=== PATIENT | female | born 1945 | race Caucasian/White ===

== ENCOUNTER 2019-02-06 12:00 | Inpatient (IN) | payer OTHER ==
[~2019-02-06] VITALS: Ht 157.5 cm; Wt 55.2 kg
[~2019-02-06 12:00] MED LIST: ACETAMINOPHEN PO; OMEP20CA16 PO
[2019-03-26] VITALS (33 sets, daily range): BP systolic 100–138; BP diastolic 46–87; PULSE 62–100; RESP 5–30; Ht 157.5 cm; Wt 55.2 kg
--- NOTE | 2019-03-26 08:08 | PREOPHP ---
DATE OF ADMISSION: 03/26/2019 HISTORY OF PRESENT ILLNESS: The patient was recently seen in the office for evaluation of severe low back pain with pain going to the lower extremities, left side greater than the right side. She senia ed any bladder or bowel dysfunction. No numbness or tingling in the lower extremities. The patient was diagnosed with L4-L5 grade I severe spondylolisthesis with severe canal stenosis. Conservative m anagement was offered to the patient with lumbar epidural injections. She also received physical the rapy as well as pain management. Her condition is getting worse. She is having more back pain and m ore leg pain. The patient wants something more definitive to be done. The patient is having difficu lty with activities of daily living. Surgical options discussed with the patient in detail for L3-L4 , L4-L5 spondylosis with severe stenosis. Surgical option was discussed with L3-L4, L4-L5 laminectom y with posterolateral fusion with pedicle screw instrumentation, possible L4-L5 interbody fusion. Th e procedure was explained to the patient in great detail. The risks, benefits, complications explain ed extensively. The patient understands and wants to proceed with surgery. PAST MEDICAL HISTORY: Per chart. SURGICAL HISTORY: Per chart. SOCIAL HISTORY: She denies use of drugs, alcohol or tobacco. ALLERGIES: Per chart. MEDICATIONS: Per chart. FAMILY HISTORY: Unremarkable. REVIEW OF SYSTEMS: Additional 10-point review of systems conducted. Pertinent positives stated in h istory, otherwise negative. PHYSICAL EXAMINATION: GENERAL: Patient is awake, alert, oriented, following commands. HEENT: Unremarkable. PULMONARY: No dyspnea noted. CARDIOVASCULAR: No JVD. No pedal edema. ABDOMEN: Soft. No guarding. NEUROLOGIC: The patient has good strength in upper extremities. Lower extremity examination is norm al. 4+/5 strength in the lower extremities. Flexion, extension, rotation lumbar spine causes severe low back discomfort. IMAGING FINDINGS: MRI of the lumbar spine shows L3-4, L4-5 spondylosis with spondylolisthesis of sev ere canal stenosis. ASSESSMENT AND PLAN: Lumbar spondylosis with severe canal stenosis with mechanical low back pain and leg pain. Recommendation is to proceed with surgical intervention with lumbar L3-L4 and L4-L5 brittany ectomy with posterolateral fusion with pedicle screw instrumentation with possible lumbar L4-L5 inter body fusion. The procedure was explained to the patient in great detail. Complications were explain ed including infection, bleeding, permanent nerve damage, stroke, heart attack, complications with an esthesia. The patient understands and wants to proceed with surgery as soon as possible. Dictated By: CATIE AVILA/SUZETTE Conf#: [id number] DID#: [id number] CC: CATIE AMADOR MD;*EndCC*
[2019-03-26] MEDS ORDERED: ATOR20TA38 PO (10:25)
[2019-03-26] MEDS ORDERED: ASCO500C7 PO (10:26)
[2019-03-26] MEDS ORDERED: PANT40TA3 PO (10:26)
[2019-03-26] MEDS ORDERED: CHOL100062 PO (10:27)
--- NOTE | 2019-03-26 11:23 | PREAC ---
Date/Time of Note Date/Time of Note DATE: 03/26/19 TIME: Anesthesia Eval and Record Evaluation Time Pre-Procedure Interview DATE: 03/26/19 TIME: Age 73 Sex female NPO: 8 hrs Preoperative diagnosis L4-L5 grade I severe spondylolisthesis with severe canal stenosis. Planned procedure L3-L4, L4-L5 laminectomy with posterolateral fusion with pedicle screw instrumentation, possible L4-L5 interbody fusion Past Medical History Past Medical History: Includes Cardio: Dyslipidemia (takes Statin) Neuro: Other (L4-L5 grade I severe spondylolisthesis with severe canal stenosis.) GI: GERD (well-controlled with med) Surgery & Anesthesia Issues No known issue Meds Anticoagulation: No Beta Nithin within 24 hr: No Reason Beta Nithin not given: Pt. not on B-Nithin Reported Medications Cholecalciferol* (Vitamin D3*) 1,000 Unit Tablet, 1000 UNIT PO DAILY, TAB 03/26/19 Ascorbic Acid* (Vitamin C*) 500 Mg Capsule.sa, 500 MG PO DAILY, CAP 03/26/19 Pantoprazole* (Protonix*) 40 Mg Tablet.dr, 40 MG PO DAILY, TAB 03/26/19 Atorvastatin Calcium* (Atorvastatin Calcium*) 20 Mg Tablet, 20 MG PO QHS, #30 TAB 03/26/19 Discontinued Reported Medications [Acetaminophen] No Conflict Check, PO 11/19/15 Omeprazole* (Omeprazole*) 20 Mg Capsule.dr, 20 MG PO DAILY, #30 CAP 11/19/15 Current Medications Lactated Ringer's 1,000 ml @ 25 mls/hr Q24H IV ; Start 03/26/19 at 11:30; Status UNV Meds reviewed: Yes Allergies Coded Allergies: No Known Allergy (Unverified , 03/26/19) Allergies Reviewed: Yes Labs/Studies Labs Reviewed: Reviewed by anesthesiologist Result Diagram: 03/26/19 1055 Laboratory Tests 03/26/19 10:55 Coagulation Test 03/26/19 10:55 Activated Partial Thromboplast Time 29.0 Sec (23.0-35.0) CBC & BMP FISHBONE 03/26/19 10:55 test: N/A Studies: ECG (NSR), CXR (NORMAL) Pre-procedure Exam Airway: Adequate mouth opening, Adequate thyromental dist Mallampati: Mallampati I Teeth: Normal (upper and lower full dentures are glued in tightly, pt refuses to remove, understands risks ) Lung: Normal Heart: Normal ASA Physical Status ASA physical status: 2 Emergency: None Planned Anesthetic General/MAC: ETT Planned Pain Management Parenteral pain med, Local by surgeon Pre-operative Attestations Prior to commencing anesthesia and surgery, the patient was re-evaluated, there was verification of: *The patient's identity *The results of appropriate recent lab work and preoperative vital signs *The above evaluation not changing prior to induction *Anesthetic plan, risk benefits, alternative and complications discussed with patient/family; questions answered; patient/family understands, accepts and wishes to proceed. COLE HARDIN March 26, 2019 11:23
[2019-03-26] MEDS ORDERED: DESFLURANE 15 MIN ONE (12:00)
[2019-03-26] MEDS ORDERED: ESMOLOL 100 MG INJ ONE (12:00)
[2019-03-26] MEDS ORDERED: ROCURONIUM 50 MG INJ ONE ×2 (12:00→12:13)
[2019-03-26] MEDS: LACTATED RINGER'S 1,000 ML IV SCH (12:02)
[2019-03-26] MEDS ORDERED: FENTAnyl 50 MCG/ML VIAL ONE ×3 (12:12→15:06)
[2019-03-26] MEDS ORDERED: CEFAZOLIN 1 GM INJ ONE (12:13)
[2019-03-26] MEDS ORDERED: LIDOCAINE 2% (SDV) 5 ML INJ ONE (12:13)
[2019-03-26] MEDS ORDERED: PROPOFOL 0 ML ONE (12:13)
[2019-03-26] MEDS ORDERED: METOCLOPRAMIDE 10 MG INJ ONE (12:15)
[2019-03-26] MEDS ORDERED: ONDANSETRON 4 MG INJ ONE (12:15)
[2019-03-26] MEDS ORDERED: DEXAMETHASONE 4 MG/ML 5 ML INJ ONE (12:15)
[2019-03-26] MEDS ORDERED: FAMOTIDINE 20 MG INJ ONE (12:16)
[2019-03-26] MEDS ORDERED: LIDOCAINE 4% (MPF) 5 ML INJ ONE (12:18)
[2019-03-26] MEDS ORDERED: LIDOCAINE 1%/EPI (1:100,000) (MDV) 20 ML ONE ×2 (12:35→12:37)
[2019-03-26] MEDS ORDERED: POLYMYXIN/BACITRACIN 1L IRRIG ONE (12:37)
[2019-03-26] MEDS ORDERED: GELATIN SIZE 100 SPONGE ONE ×2 (12:38→15:14)
[2019-03-26] MEDS ORDERED: THROMBIN 20,000 UNIT VIAL ONE (12:39)
[2019-03-26] MEDS ORDERED: hydrALAzine 20 MG INJ IV PRN (14:30)
[2019-03-26] MEDS ORDERED: MEPERIDINE 25 MG INJ IV PRN (14:30)
[2019-03-26] MEDS ORDERED: HYDROmorphONE 1 MG/5 ML IV SYRINGE IV PRN ×3 (14:30)
[2019-03-26] MEDS ORDERED: ONDANSETRON 4 MG INJ IV PRN ×2 (14:30→16:00)
[2019-03-26] MEDS ORDERED: LABETALOL HCL 20MG INJ IV PRN (14:30)
[2019-03-26] MEDS ORDERED: OXYCODONE/ACETAMINOPHEN (5/325) TAB PO PRN ×2 (14:30)
[2019-03-26] MEDS ORDERED: PROPOFOL 60 ML ONE (15:06)
[2019-03-26] MEDS ORDERED: GLYCOPYRROLATE 0.4 MG INJ ONE (15:31)
[2019-03-26] MEDS ORDERED: NEOSTIGMINE 3 MG/3 ML SYRINGE ONE (15:31)
[2019-03-26] MEDS ORDERED: niCARdipine 50 MG in SOD CHLORIDE 0.9% 480 ML IV SCH (16:00)
--- NOTE | 2019-03-26 16:21 | PAC ---
Date/Time of Note Date/Time of Note DATE: 03/26/19 TIME: 16:20 Post-Anesthesia Notes Post-Anesthesia Note Last documented vital signs post pacu bp 120/87 hr 83 temp 98.7 spo2 100% rr 16 Vital Signs Date Temp Pulse Resp B/P (MAP) Pulse Ox O2 O2 Flow FiO2 Time Delivery Rate 03/26/19 97.8 71 16 138/66 100 Room Air 11:29 (90) Activity: WNL Respiratory function: WNL Cardiovascular function: WNL Mental status: Baseline Pain reasonably controlled: Yes Hydration appropriate: Yes Nausea/Vomiting absent: Yes COLE HARDIN March 26, 2019 16:21
--- NOTE | 2019-03-26 17:54 | HP ---
Date/Time of Note Date/Time of Note DATE: 03/26/19 TIME: 17:46 Assessment/Plan VTE Prophylaxis Risk score (from Ns)>0 risk: 4 SCD applied (from Ns): Yes Pharmacological prophylaxis: NA/contraindicated Pharm contraindication: surgical contra Lines/Catheters IV Catheter Type (from Nrsg): Peripheral IV Assessment/Plan Assessment/Plan -L4-L5 grade 1 severe spondylolisthesis with severe canal stenosis status post L3-L5 laminectomy with posterolateral fusion by Dr. Mukherjee on 03/26/19. Continue IV fluids and postoperative antibiotic. Continue [place] and morphine as needed for pain and Zofran as needed for nausea. -Hyperlipidemia, continue Lipitor. -GERD, continue Protonix. Further recommendations based on clinical course. Plan of care discussed with Dr. Suarez. Result Diagram: 03/26/19 1055 03/26/19 1055 Results 24hrs Laboratory Tests Test 03/26/19 10:40 03/26/19 10:55 Urine Color STRAW Urine Clarity CLEAR Urine pH 6.0 Urine Specific [place] 1.013 Urine Ketones NEGATIVE Urine Nitrite NEGATIVE Urine Bilirubin NEGATIVE Urine Urobilinogen NEGATIVE Urine Leukocyte Esterase NEGATIVE Urine Microscopic RBC 1 Urine Microscopic WBC 0 Urine Hemoglobin 1+ H Urine Glucose NEGATIVE Urine Total Protein NEGATIVE White Blood Count 4.9 Red Blood Count 3.89 L Hemoglobin 11.8 L Hematocrit 36.3 L Mean Corpuscular Volume 93.3 Mean Corpuscular Hemoglobin 30.3 Mean Corpuscular Hemoglobin Concent 32.5 Red Cell Distribution Width 13.7 Platelet Count 184 Mean Platelet Volume 11.5 H Immature Granulocytes % 0.200 Neutrophils % 42.9 Lymphocytes % 43.5 Monocytes % 10.7 Eosinophils % 2.1 Basophils % 0.6 Nucleated Red Blood Cells % 0.0 Immature Granulocytes # 0.010 Neutrophils # 2.1 Lymphocytes # 2.1 Monocytes # 0.5 Eosinophils # 0.1 Basophils # 0.0 Nucleated Red Blood Cells # 0.0 Prothrombin Time 12.5 Prothrombin Time Ratio 1.0 INR International Normalized Ratio 0.92 Activated Partial Thromboplast Time 29.0 Sodium Level 142 Potassium Level 4.1 Chloride Level 107 Carbon Dioxide Level 28 Anion Gap 7 Blood Urea Nitrogen 12 Creatinine 0.54 Est Glomerular Filtrat Rate mL/min Glucose Level 89 Calcium Level 9.4 Total Bilirubin 0.5 Direct Bilirubin 0.00 Indirect Bilirubin 0.5 Aspartate Amino Transf (AST/SGOT) 30 Alanine Aminotransferase (ALT/SGPT) 24 Alkaline Phosphatase 83 Total Protein 7.1 Albumin 4.4 Globulin 2.70 Albumin/Globulin Ratio 1.62 HPI/ROS Admit Date/Time Admit Date/Time March 26, 2019 at 09:29 Hx of Present Illness The patient is a 3-year-old female with history of hyperlipidemia and GERD. Patient was evaluated by Dr. Marks in neurosurgery consultation for lower back pain with radiation to bilateral lower extremity was difficulty walking. Radiographic evidence with grade 1 severe spondylolisthesis with severe canal stenosis. Patient was brought to the hospital and underwent L3-L5 laminectomy was posterolateral fusion. Postoperatively patient experiencing pain and patient will be admitted for further evaluation and management. ROS 12 point review of system is negative except for what mentioned in HPI PMH/Family/Social Past Medical History Medical History: GERD, high cholesterol Medications Current Medications Lactated Ringer's 1,000 ml @ 25 mls/hr Q24H IV Last administered on 03/26/19at 12:02; Admin Dose 25 MLS/HR; Start 03/26/19 at 11:30 Hydromorphone HCl (Dilaudid) 0.2 mg PACU PRN IV MILD PAIN 1-3; Start 03/26/19 at 14:30; Stop 03/26/19 at 21:00 Hydromorphone HCl (Dilaudid) 0.4 mg PACU PRN IV MOD PAIN 4-6 Last administered on 03/26/19at 16:28; Admin Dose 0.4 MG; Start 03/26/19 at 14:30; Stop 03/26/19 at 21:00 Hydromorphone HCl (Dilaudid) 0.6 mg PACU PRN IV SEVERE PAIN 7-10 Last administered on 03/26/19at 16:22; Admin Dose 0.6 MG; Start 03/26/19 at 14:30; Stop 03/26/19 at 21:00 Oxycodone/ Acetaminophen (Percocet (5/ 325)) 1 tab PACU ORDER PRN PO .PAIN 1-5; Start 03/26/19 at 14:30; Stop 03/26/19 at 21:00 Oxycodone/ Acetaminophen (Percocet (5/ 325)) 2 tab PACU ORDER PRN PO .PAIN 6-10; Start 03/26/19 at 14:30; Stop 03/26/19 at 21:00 Ondansetron HCl (Zofran Inj) 4 mg PACU ORDER PRN IV NAUSEA/VOMITING Last administered on 03/26/19at 16:23; Admin Dose 4 MG; Start 03/26/19 at 14:30; Stop 03/26/19 at 21:00 Labetalol HCl (Labetalol) 5 mg PACU ORDER PRN IV HIGH BLOOD PRESSURE; Start 03/26/19 at 14:30; Stop 03/26/19 at 21:00 Hydralazine HCl (Apresoline) 5 mg PACU ORDER PRN IV HIGH BLOOD PRESSURE; Start 03/26/19 at 14:30; Stop 03/26/19 at 21:00 Meperidine HCl (Demerol) 25 mg PACU ORDER PRN IV .RIGORS Last administered on 03/26/19at 16:38; Admin Dose 25 MG; Start 03/26/19 at 14:30; Stop 03/26/19 at 21:00 Dextrose/Lactated Ringer's 1,000 ml @ 150 mls/hr Q6H40M IV ; Start 03/26/19 at 16:00 Cefazolin Sodium 50 ml @ 100 mls/hr Q8 IVPB ; Start 03/26/19 at 22:00; Stop 03/28/19 at 22:00 Nicardipine HCl 50 mg/Sodium Chloride 500 ml @ 50 mls/hr TITRATE IV ; Start 03/26/19 at 16:00 Morphine Sulfate (morphine) 3 mg Q4H PRN IV SEVERE PAIN LEVEL 7-10; Start 03/26/19 at 16:00 Acetaminophen/ Hydrocodone Bitart ([place] (5/325)) 1 tab Q4H PRN PO MODERATE PAIN LEVEL 4-6; Start 03/26/19 at 16:00 Ondansetron HCl (Zofran Inj) 4 mg Q6H PRN IV NAUSEA AND/OR VOMITING; Start 03/26/19 at 16:00 Coded Allergies: No Known Allergy (Unverified , 03/26/19) Past Surgical History Past Surgical Hx: appendectomy, other ( x2, status post colonoscopy) Family History Significant Family History: no pertinent family hx Social History Alcohol Use: none Smoking Status: Never smoker Drug Use: none Exam/Review of Systems Vital Signs Vitals Vital Signs Date Temp Pulse Resp B/P (MAP) Pulse Ox O2 O2 Flow FiO2 Time Delivery Rate 03/26/19 62 7 113/62 100 Nasal 17:33 (79) Cannula 03/26/19 8.0 16:17 03/26/19 98.7 16:11 Exam Constitutional: alert, oriented Head: normocephalic Neck: supple Respiratory: clear to auscultation Cardiovascular: regular rate and rhythm Gastrointestinal: soft, non-tender Musculoskeletal: other (That is post lumbar surgery with drain) Extremities: normal pulses Neurological: nl mental status Skin: nl ZAKI Stern March 26, 2019 17:54
[2019-03-26] MEDS: DEXTROSE 5%-LR 1,000 ML IV SCH ×2 (20:04→23:50)
--- NOTE | 2019-03-26 20:21 | RADRPT ---
Vent Rate: 65 bpm RR Interval: 928 msec DC Interval: 175 msec QRS Duration: 80 msec QT Interval: 382 msec QTC Interval: 397 msec P-R-T [place]: 53 - 57 - 58 degrees Sinus rhythm...normal P axis, V-rate 50- 99 Electronically Signed By: Merrill Moses
[2019-03-26] MEDS: CEFAZOLIN 1 GM/50 ML (PMX) 50 ML IVPB SCH (21:31)
[2019-03-26] MEDS: ATORVASTATIN 20 MG TAB PO SCH (21:31)
[2019-03-26] MEDS: morphine 4 MG/ML VIAL IV PRN (21:39)
[2019-03-27] VITALS (24 sets, daily range): BP systolic 81–126; BP diastolic 40–76; PULSE 64–149; RESP 10–23
[2019-03-27] MEDS: HYDROCODONE/APAP (5/325) TAB PO PRN ×3 (00:43→21:17)
[2019-03-27] MEDS: DEXTROSE 5%-LR 1,000 ML IV SCH ×4 (02:14→23:11)
[2019-03-27] MEDS: CEFAZOLIN 1 GM/50 ML (PMX) 50 ML IVPB SCH ×3 (05:31→21:17)
[2019-03-27] MEDS: PANTOPRAZOLE (EC) 40 MG TAB PO SCH (05:31)
[2019-03-27] MEDS: LACTATED RINGER'S 1,000 ML IV SCH (10:44)
--- NOTE | 2019-03-27 12:27 | CONS ---
Assessment/Plan Assessment/Plan Assessment/Plan (Daily) seen and examined awake alert follows moves all sens intact sp lumbar 3-4-5 laminectomy with fusion/instrumentation start pt/ot advance diet ok to leave unit discussed with daughter ss consult Consultation Date/Type/Reason Admit Date/Time March 26, 2019 at 09:29 Initial Consult Date Date/Time of Note DATE: 03/27/19 TIME: 12:26 Exam/Review of Systems Exam Vitals Vital Signs Date Temp Pulse Resp B/P (MAP) Pulse Ox O2 O2 Flow FiO2 Time Delivery Rate 03/27/19 91 14 121/71 95 Nasal 11:00 (88) Cannula 03/27/19 2.0 08:00 03/27/19 97.9 08:00 Intake and Output 03/26/19 03/26/19 03/27/19 1515:00 23:00 07:00 IntakeIntake Total 2200 ml 1290 ml OutputOutput Total 1450 ml 890 ml BalanceBalance 750 ml 400 ml Results Result Diagram: 03/27/19 0440 03/27/19 0440 Results 24hrs Laboratory Tests Test 03/27/19 04:40 White Blood Count 8.0 # Red Blood Count 2.72 #L Hemoglobin 8.3 #L Hematocrit 25.3 #L Mean Corpuscular Volume 93.0 Mean Corpuscular Hemoglobin 30.5 Mean Corpuscular Hemoglobin Concent 32.8 Red Cell Distribution Width 14.0 Platelet Count 144 # Mean Platelet Volume 11.9 H Immature Granulocytes % 0.200 Neutrophils % 82.1 H Lymphocytes % 9.3 L Monocytes % 8.3 Eosinophils % 0.0 Basophils % 0.1 Nucleated Red Blood Cells % 0.0 Immature Granulocytes # 0.020 Neutrophils # 6.6 Lymphocytes # 0.8 Monocytes # 0.7 Eosinophils # 0.0 Basophils # 0.0 Nucleated Red Blood Cells # 0.0 Sodium Level 139 Potassium Level 4.4 Chloride Level 106 Carbon Dioxide Level 25 Anion Gap 8 Blood Urea Nitrogen 9 Creatinine 0.47 Est Glomerular Filtrat Rate mL/min Glucose Level 175 Calcium Level 8.2 L Medications Medication Current Medications Lactated Ringer's 1,000 ml @ 25 mls/hr Q24H IV Last administered on 03/26/19at 12:02; Admin Dose 25 MLS/HR; Start 03/26/19 at 11:30 Dextrose/Lactated Ringer's 1,000 ml @ 150 mls/hr Q6H40M IV Last administered on 03/27/19 08:56; Admin Dose 150 MLS/HR; Start 03/26/19 at 16:00 Cefazolin Sodium 50 ml @ 100 mls/hr Q8 IVPB Last administered on 03/27/19 05:31; Admin Dose 100 MLS/HR; Start 03/26/19 at 22:00; Stop 03/28/19 at 22:00 Nicardipine HCl 50 mg/Sodium Chloride 500 ml @ 50 mls/hr TITRATE IV ; Start 03/26/19 at 16:00 Morphine Sulfate (morphine) 3 mg Q4H PRN IV SEVERE PAIN LEVEL 7-10 Last administered on 03/26/19 21:39; Admin Dose 3 MG; Start 03/26/19 at 16:00 Acetaminophen/ Hydrocodone Bitart ([place] (5/325)) 1 tab Q4H PRN PO MODERATE PAIN LEVEL 4-6 Last administered on 03/27/19 00:43; Admin Dose 1 TAB; Start 03/26/19 at 16:00 Ondansetron HCl (Zofran Inj) 4 mg Q6H PRN IV NAUSEA AND/OR VOMITING; Start 03/26/19 at 16:00 Atorvastatin Calcium (Lipitor) 20 mg QHS PO Last administered on 03/26/19 21:31; Admin Dose 20 MG; Start 03/26/19 at 21:00 Pantoprazole (Protonix Tab) 40 mg DAILY@0600 PO Last administered on 03/27/19 05:31; Admin Dose 40 MG; Start 03/27/19 at 06:00 NEMESIO HOWARD PA-C March 27, 2019 12:27
--- NOTE | 2019-03-27 15:08 | PN ---
Date/Time of Note Date/Time of Note DATE: 03/27/19 TIME: 15:04 Assessment/Plan VTE Prophylaxis Risk score (from Ns)>0 risk: 12 SCD applied (from Ns): Yes Pharmacological prophylaxis: NA/contraindicated Pharm contraindication: surgical contra Lines/Catheters IV Catheter Type (from Nrsg): Peripheral IV Central line still needed: Yes Urinary Cath still in place: Yes Reason Cath still needed: urinary retention Assessment/Plan Hospital Course Patient is awake alert, remains hemodynamically stable, Hemovac drainage was 240 cc per evening or night nurse supervisor, continue to monitor. Continue current pain management, PT OT, okay to transfer out of ICU when cleared by neurosurgery. Assessment/Plan -L4-L5 grade 1 severe spondylolisthesis with severe canal stenosis status post L3-L5 laminectomy with posterolateral fusion by Dr. Mukherjee on 03/26/19. Continue IV fluids and postoperative antibiotic. Continue [place] and morphine as needed for pain and Zofran as needed for nausea. PT OT. -Hyperlipidemia, continue Lipitor. -GERD, continue Protonix. Further recommendations based on clinical course. Plan of care discussed with Dr. Suarez. Result Diagram: 03/27/19 0440 03/27/19 0440 Results 24hrs Laboratory Tests Test 03/27/19 04:40 White Blood Count 8.0 # Red Blood Count 2.72 #L Hemoglobin 8.3 #L Hematocrit 25.3 #L Mean Corpuscular Volume 93.0 Mean Corpuscular Hemoglobin 30.5 Mean Corpuscular Hemoglobin Concent 32.8 Red Cell Distribution Width 14.0 Platelet Count 144 # Mean Platelet Volume 11.9 H Immature Granulocytes % 0.200 Neutrophils % 82.1 H Lymphocytes % 9.3 L Monocytes % 8.3 Eosinophils % 0.0 Basophils % 0.1 Nucleated Red Blood Cells % 0.0 Immature Granulocytes # 0.020 Neutrophils # 6.6 Lymphocytes # 0.8 Monocytes # 0.7 Eosinophils # 0.0 Basophils # 0.0 Nucleated Red Blood Cells # 0.0 Sodium Level 139 Potassium Level 4.4 Chloride Level 106 Carbon Dioxide Level 25 Anion Gap 8 Blood Urea Nitrogen 9 Creatinine 0.47 Est Glomerular Filtrat Rate mL/min Glucose Level 175 Calcium Level 8.2 L Exam/Review of Systems Exam Vitals Vital Signs Date Temp Pulse Resp B/P (MAP) Pulse Ox O2 O2 Flow FiO2 Time Delivery Rate 03/27/19 77 17 121/59 100 Nasal 13:00 (79) Cannula 03/27/19 98.0 12:00 03/27/19 2.0 08:00 Intake and Output 03/26/19 03/26/19 03/27/19 1515:00 23:00 07:00 IntakeIntake Total 2200 ml 1290 ml OutputOutput Total 1450 ml 890 ml BalanceBalance 750 ml 400 ml Exam Constitutional: alert, oriented Respiratory: clear to auscultation Cardiovascular: regular rate and rhythm Gastrointestinal: soft, non-tender Musculoskeletal: other (s/p lumbar surgery, Hemovac) Extremities: normal pulses Neurological: nl mental status Results Results 24hrs Laboratory Tests Test 03/27/19 04:40 White Blood Count 8.0 # Red Blood Count 2.72 #L Hemoglobin 8.3 #L Hematocrit 25.3 #L Mean Corpuscular Volume 93.0 Mean Corpuscular Hemoglobin 30.5 Mean Corpuscular Hemoglobin Concent 32.8 Red Cell Distribution Width 14.0 Platelet Count 144 # Mean Platelet Volume 11.9 H Immature Granulocytes % 0.200 Neutrophils % 82.1 H Lymphocytes % 9.3 L Monocytes % 8.3 Eosinophils % 0.0 Basophils % 0.1 Nucleated Red Blood Cells % 0.0 Immature Granulocytes # 0.020 Neutrophils # 6.6 Lymphocytes # 0.8 Monocytes # 0.7 Eosinophils # 0.0 Basophils # 0.0 Nucleated Red Blood Cells # 0.0 Sodium Level 139 Potassium Level 4.4 Chloride Level 106 Carbon Dioxide Level 25 Anion Gap 8 Blood Urea Nitrogen 9 Creatinine 0.47 Est Glomerular Filtrat Rate mL/min Glucose Level 175 Calcium Level 8.2 L Medications Medication Current Medications Lactated Ringer's 1,000 ml @ 25 mls/hr Q24H IV Last administered on 03/26/19at 12:02; Admin Dose 25 MLS/HR; Start 03/26/19 at 11:30 Dextrose/Lactated Ringer's 1,000 ml @ 150 mls/hr Q6H40M IV Last administered on 03/27/19at 08:56; Admin Dose 150 MLS/HR; Start 03/26/19 at 16:00 Cefazolin Sodium 50 ml @ 100 mls/hr Q8 IVPB Last administered on 03/27/19at 13:18; Admin Dose 100 MLS/HR; Start 03/26/19 at 22:00; Stop 03/28/19 at 22:00 Nicardipine HCl 50 mg/Sodium Chloride 500 ml @ 50 mls/hr TITRATE IV ; Start 03/26/19 at 16:00 Morphine Sulfate (morphine) 3 mg Q4H PRN IV SEVERE PAIN LEVEL 7-10 Last administered on 03/26/19at 21:39; Admin Dose 3 MG; Start 03/26/19 at 16:00 Acetaminophen/ Hydrocodone Bitart ([place] (5/325)) 1 tab Q4H PRN PO MODERATE PAIN LEVEL 4-6 Last administered on 03/27/19at 13:00; Admin Dose 1 TAB; Start 03/26/19 at 16:00 Ondansetron HCl (Zofran Inj) 4 mg Q6H PRN IV NAUSEA AND/OR VOMITING; Start 03/26/19 at 16:00 Atorvastatin Calcium (Lipitor) 20 mg QHS PO Last administered on 03/26/19at 21:31; Admin Dose 20 MG; Start 03/26/19 at 21:00 Pantoprazole (Protonix Tab) 40 mg DAILY@0600 PO Last administered on 03/27/19at 05:31; Admin Dose 40 MG; Start 03/27/19 at 06:00 ZAKI STARK March 27, 2019 15:08
[2019-03-27] MEDS: morphine 4 MG/ML VIAL IV PRN (17:45)
[2019-03-27] MEDS: ATORVASTATIN 20 MG TAB PO SCH (21:16)
[2019-03-28] VITALS (15 sets, daily range): BP systolic 90–120; BP diastolic 47–68; PULSE 82–93; RESP 14–18
[2019-03-28] MEDS: PANTOPRAZOLE (EC) 40 MG TAB PO SCH (05:33)
[2019-03-28] MEDS: HYDROCODONE/APAP (5/325) TAB PO PRN ×3 (05:34→18:31)
[2019-03-28] MEDS: CEFAZOLIN 1 GM/50 ML (PMX) 50 ML IVPB SCH ×3 (05:34→21:09)
[2019-03-28] MEDS: DEXTROSE 5%-LR 1,000 ML IV SCH ×2 (08:17→15:13)
--- NOTE | 2019-03-28 14:13 | CONS ---
Assessment/Plan Assessment/Plan Assessment/Plan (Daily) seen and examined awake alert follows moves all sens intact h/h dropped to 8.2 sbp in 90's will transfuse 1u prbc discussed with pt and daughter, both agree with transfusion Consultation Date/Type/Reason Admit Date/Time March 26, 2019 at 09:29 Initial Consult Date Date/Time of Note DATE: 03/28/19 TIME: 14:12 Exam/Review of Systems Exam Vitals Vital Signs Date Temp Pulse Resp B/P (MAP) Pulse Ox O2 O2 Flow FiO2 Time Delivery Rate 03/28/19 97.7 85 18 90/47 (61) 99 Room Air 11:49 03/27/19 2.0 08:00 Intake and Output 03/27/19 03/27/19 03/28/19 1515:00 23:00 07:00 IntakeIntake Total 1250 ml 1380 ml 1150 ml OutputOutput Total 1250 ml 1200 ml 1950 ml BalanceBalance 0 ml 180 ml -800 ml Results Result Diagram: 03/28/19 0448 03/28/19 0448 Results 24hrs Laboratory Tests Test 03/28/19 04:48 White Blood Count 7.6 Red Blood Count 2.68 L Hemoglobin 8.2 L Hematocrit 25.1 L Mean Corpuscular Volume 93.7 Mean Corpuscular Hemoglobin 30.6 Mean Corpuscular Hemoglobin Concent 32.7 Red Cell Distribution Width 13.7 Platelet Count 133 L Mean Platelet Volume 11.5 H Immature Granulocytes % 0.300 Neutrophils % 62.0 Lymphocytes % 25.7 Monocytes % 11.0 Eosinophils % 0.7 Basophils % 0.3 Nucleated Red Blood Cells % 0.0 Immature Granulocytes # 0.020 Neutrophils # 4.7 Lymphocytes # 2.0 Monocytes # 0.8 Eosinophils # 0.1 Basophils # 0.0 Nucleated Red Blood Cells # 0.0 Sodium Level 140 Potassium Level 3.8 Chloride Level 103 Carbon Dioxide Level 33 H Anion Gap 4 L Blood Urea Nitrogen 8 Creatinine 0.55 Est Glomerular Filtrat Rate mL/min Glucose Level 122 # Calcium Level 8.5 Total Bilirubin 0.4 Direct Bilirubin 0.00 Indirect Bilirubin 0.4 Aspartate Amino Transf (AST/SGOT) 45 Alanine Aminotransferase (ALT/SGPT) 24 Alkaline Phosphatase 46 Total Protein 5.4 #L Albumin 3.1 #L Globulin 2.30 Albumin/Globulin Ratio 1.34 Medications Medication Current Medications Dextrose/Lactated Ringer's 1,000 ml @ 150 mls/hr Q6H40M IV Last administered on 03/28/19 08:17; Admin Dose 150 MLS/HR; Start 03/26/19 at 16:00 Cefazolin Sodium 50 ml @ 100 mls/hr Q8 IVPB Last administered on 03/28/19 05:34; Admin Dose 100 MLS/HR; Start 03/26/19 at 22:00; Stop 03/28/19 at 22:00 Nicardipine HCl 50 mg/Sodium Chloride 500 ml @ 50 mls/hr TITRATE IV ; Start 03/26/19 at 16:00 Morphine Sulfate (morphine) 3 mg Q4H PRN IV SEVERE PAIN LEVEL 7-10 Last administered on 03/27/19at 17:45; Admin Dose 3 MG; Start 03/26/19 at 16:00 Acetaminophen/ Hydrocodone Bitart ([place] (5/325)) 1 tab Q4H PRN PO MODERATE PAIN LEVEL 4-6 Last administered on 03/28/19at 10:16; Admin Dose 1 TAB; Start 03/26/19 at 16:00 Ondansetron HCl (Zofran Inj) 4 mg Q6H PRN IV NAUSEA AND/OR VOMITING; Start 03/26/19 at 16:00 Atorvastatin Calcium (Lipitor) 20 mg QHS PO Last administered on 03/27/19at 21:16; Admin Dose 20 MG; Start 03/26/19 at 21:00 Pantoprazole (Protonix Tab) 40 mg DAILY@0600 PO Last administered on 03/28/19at 05:33; Admin Dose 40 MG; Start 03/27/19 at 06:00 NEMESIO HOWARD PA-C March 28, 2019 14:13
--- NOTE | 2019-03-28 14:30 | PN ---
Date/Time of Note Date/Time of Note DATE: 03/28/19 TIME: 14:28 Assessment/Plan VTE Prophylaxis Risk score (from [facility] [place])>0 risk: 10 SCD applied (from Ns): Yes Pharmacological prophylaxis: NA/contraindicated Pharm contraindication: surgical contra Lines/Catheters [facility] Peripheral IV Central line still needed: Yes Urinary Cath still in place: Yes Reason Cath still needed: urinary retention Assessment/Plan Hospital Course Patient was hypostatic hypotension, continue IV fluids, patient has a moderate serous drainage from Hemovac, plan to transfuse 1 unit of packed red blood cells. Continue telemetry monitoring. Assessment/Plan -L4-L5 grade 1 severe spondylolisthesis with severe canal stenosis status post L3-L5 laminectomy with posterolateral fusion by Dr. Mukherjee on 03/26/19. Continue IV fluids and postoperative antibiotic. Continue [place] and morphine as needed for pain and Zofran as needed for nausea. PT OT. -Hyperlipidemia, continue Lipitor. -GERD, continue Protonix. Further recommendations based on clinical course. Plan of care discussed with Dr. Suarez. Result Diagram: 03/28/19 0448 03/28/19 0448 Results 24hrs Laboratory Tests Test 03/28/19 04:48 White Blood Count 7.6 Red Blood Count 2.68 L Hemoglobin 8.2 L Hematocrit 25.1 L Mean Corpuscular Volume 93.7 Mean Corpuscular Hemoglobin 30.6 Mean Corpuscular Hemoglobin Concent 32.7 Red Cell Distribution Width 13.7 Platelet Count 133 L Mean Platelet Volume 11.5 H Immature Granulocytes % 0.300 Neutrophils % 62.0 Lymphocytes % 25.7 Monocytes % 11.0 Eosinophils % 0.7 Basophils % 0.3 Nucleated Red Blood Cells % 0.0 Immature Granulocytes # 0.020 Neutrophils # 4.7 Lymphocytes # 2.0 Monocytes # 0.8 Eosinophils # 0.1 Basophils # 0.0 Nucleated Red Blood Cells # 0.0 Sodium Level 140 Potassium Level 3.8 Chloride Level 103 Carbon Dioxide Level 33 H Anion Gap 4 L Blood Urea Nitrogen 8 Creatinine 0.55 Est Glomerular Filtrat Rate mL/min Glucose Level 122 # Calcium Level 8.5 Total Bilirubin 0.4 Direct Bilirubin 0.00 Indirect Bilirubin 0.4 Aspartate Amino Transf (AST/SGOT) 45 Alanine Aminotransferase (ALT/SGPT) 24 Alkaline Phosphatase 46 Total Protein 5.4 #L Albumin 3.1 #L Globulin 2.30 Albumin/Globulin Ratio 1.34 Exam/Review of Systems Exam Vitals Vital Signs Date Temp Pulse Resp B/P (MAP) Pulse Ox O2 O2 Flow FiO2 Time Delivery Rate 03/28/19 95 2.0 14:18 03/28/19 97 20 Nasal 14:18 Cannula 03/28/19 97.7 90/47 (61) 11:49 Intake and Output 03/27/19 03/27/19 03/28/19 1515:00 23:00 07:00 IntakeIntake Total 1250 ml 1380 ml 1150 ml OutputOutput Total 1250 ml 1200 ml 1950 ml BalanceBalance 0 ml 180 ml -800 ml Exam Constitutional: alert, oriented Respiratory: clear to auscultation Cardiovascular: regular rate and rhythm Gastrointestinal: soft, non-tender Musculoskeletal: other (s/p lumbar surgery, Hemovac) Extremities: normal pulses Neurological: nl mental status Results Results 24hrs Laboratory Tests Test 03/28/19 04:48 White Blood Count 7.6 Red Blood Count 2.68 L Hemoglobin 8.2 L Hematocrit 25.1 L Mean Corpuscular Volume 93.7 Mean Corpuscular Hemoglobin 30.6 Mean Corpuscular Hemoglobin Concent 32.7 Red Cell Distribution Width 13.7 Platelet Count 133 L Mean Platelet Volume 11.5 H Immature Granulocytes % 0.300 Neutrophils % 62.0 Lymphocytes % 25.7 Monocytes % 11.0 Eosinophils % 0.7 Basophils % 0.3 Nucleated Red Blood Cells % 0.0 Immature Granulocytes # 0.020 Neutrophils # 4.7 Lymphocytes # 2.0 Monocytes # 0.8 Eosinophils # 0.1 Basophils # 0.0 Nucleated Red Blood Cells # 0.0 Sodium Level 140 Potassium Level 3.8 Chloride Level 103 Carbon Dioxide Level 33 H Anion Gap 4 L Blood Urea Nitrogen 8 Creatinine 0.55 Est Glomerular Filtrat Rate mL/min Glucose Level 122 # Calcium Level 8.5 Total Bilirubin 0.4 Direct Bilirubin 0.00 Indirect Bilirubin 0.4 Aspartate Amino Transf (AST/SGOT) 45 Alanine Aminotransferase (ALT/SGPT) 24 Alkaline Phosphatase 46 Total Protein 5.4 #L Albumin 3.1 #L Globulin 2.30 Albumin/Globulin Ratio 1.34 Medications Medication Current Medications Dextrose/Lactated Ringer's 1,000 ml @ 125 mls/hr Q8H IV Last administered on 03/28/19 08:17; Admin Dose 150 MLS/HR; Start 03/26/19 at 16:00 Cefazolin Sodium 50 ml @ 100 mls/hr Q8 IVPB Last administered on 03/28/19at 05:34; Admin Dose 100 MLS/HR; Start 03/26/19 at 22:00; Stop 03/28/19 at 22:00 Nicardipine HCl 50 mg/Sodium Chloride 500 ml @ 50 mls/hr TITRATE IV ; Start 03/26/19 at 16:00 Morphine Sulfate (morphine) 3 mg Q4H PRN IV SEVERE PAIN LEVEL 7-10 Last administered on 03/27/19at 17:45; Admin Dose 3 MG; Start 03/26/19 at 16:00 Acetaminophen/ Hydrocodone Bitart ([place] (5/325)) 1 tab Q4H PRN PO MODERATE PAIN LEVEL 4-6 Last administered on 03/28/19at 10:16; Admin Dose 1 TAB; Start 03/26/19 at 16:00 Ondansetron HCl (Zofran Inj) 4 mg Q6H PRN IV NAUSEA AND/OR VOMITING; Start 03/26/19 at 16:00 Atorvastatin Calcium (Lipitor) 20 mg QHS PO Last administered on 03/27/19at 21:16; Admin Dose 20 MG; Start 03/26/19 at 21:00 Pantoprazole (Protonix Tab) 40 mg DAILY@0600 PO Last administered on 03/28/19at 05:33; Admin Dose 40 MG; Start 03/27/19 at 06:00 ZAKI STARK March 28, 2019 14:30
[2019-03-28] MEDS ORDERED: ACETAMINOPHEN 325 MG TAB PO ONE (17:00)
[2019-03-28] MEDS: ATORVASTATIN 20 MG TAB PO SCH (20:16)
[2019-03-29] VITALS (12 sets, daily range): BP systolic 96–118; BP diastolic 53–69; PULSE 71–91; RESP 18–19
[2019-03-29] MEDS: DEXTROSE 5%-LR 1,000 ML IV SCH ×4 (02:50→17:01)
[2019-03-29] MEDS: morphine 4 MG/ML VIAL IV PRN (02:51)
[2019-03-29] MEDS: HYDROCODONE/APAP (5/325) TAB PO PRN ×4 (05:32→19:31)
[2019-03-29] MEDS: PANTOPRAZOLE (EC) 40 MG TAB PO SCH (05:32)
--- NOTE | 2019-03-29 12:00 | PN ---
Date/Time of Note Date/Time of Note DATE: 03/29/19 TIME: 11:59 Assessment/Plan VTE Prophylaxis Risk score (from [facility] [place])>0 risk: 14 SCD applied (from [facility] [place]): Yes SCD contraindicated: other Pharmacological prophylaxis: other Pharm contraindication: other Lines/Catheters [facility] Type (from [facility]): Peripheral IV Urinary Cath still in place: Yes Reason Cath still needed: urinary retention Assessment/Plan Assessment/Plan -L4-L5 grade 1 severe spondylolisthesis with severe canal stenosis - status post L3-L5 laminectomy with posterolateral fusion by Dr. Mukherjee on 03/26/19. - Continue IV fluids and postoperative antibiotic. - Continue [place] and morphine as needed for pain and Zofran as needed for nausea. PT OT. - Anemia - Hgb 7.6 - transfuse PRN - monitor CBC -Hyperlipidemia, continue Lipitor. -GERD, continue Protonix. Further recommendations based on clinical course. Plan of care discussed with Dr. Suarez. Result Diagram: 03/29/19 0503/29/19 0521 Results 24hrs Laboratory Tests Test 03/28/19 17:10 03/29/19 05:21 Urine Color COLORLESS Urine Clarity CLEAR Urine pH 8.0 Urine Specific [place] 1.009 Urine Ketones NEGATIVE Urine Nitrite NEGATIVE Urine Bilirubin NEGATIVE Urine Urobilinogen NEGATIVE Urine Leukocyte Esterase NEGATIVE Urine Hemoglobin NEGATIVE Urine Glucose NEGATIVE Urine Total Protein NEGATIVE White Blood Count 6.5 Red Blood Count 2.56 L Hemoglobin 7.6 L Hematocrit 23.5 L Mean Corpuscular Volume 91.8 Mean Corpuscular Hemoglobin 29.7 Mean Corpuscular Hemoglobin Concent 32.3 Red Cell Distribution Width 13.8 Platelet Count 124 L Mean Platelet Volume 11.8 H Immature Granulocytes % 0.300 Neutrophils % 65.1 Lymphocytes % 21.2 Monocytes % 11.2 H Eosinophils % 2.0 Basophils % 0.2 Nucleated Red Blood Cells % 0.0 Immature Granulocytes # 0.020 Neutrophils # 4.3 Lymphocytes # 1.4 Monocytes # 0.7 Eosinophils # 0.1 Basophils # 0.0 Nucleated Red Blood Cells # 0.0 Sodium Level 139 Potassium Level 3.5 Chloride Level 104 Carbon Dioxide Level 32 H Anion Gap 3 L Blood Urea Nitrogen 7 Creatinine 0.47 Est Glomerular Filtrat Rate mL/min Glucose Level 122 Calcium Level 8.3 L Subjective 24 Hr Interval Summary Free Text/Dictation c/o back pain- effective pain control Eyes: no complaints ENT: no complaints Respiratory: no complaints Cardiovascular: no complaints Gastrointestinal: no complaints Genitourinary: no complaints Musculoskeletal: back pain Skin: no complaints Neurologic: no complaints Exam/Review of Systems Exam Vitals Vital Signs Date Temp Pulse Resp B/P (MAP) Pulse Ox O2 O2 Flow FiO2 Time Delivery Rate 03/29/19 97.5 80 18 108/55 100 Room Air 11:15 (72) 03/29/19 2.0 01:37 Intake and Output 03/28/19 03/28/19 03/29/19 1515:00 23:00 07:00 IntakeIntake Total 900 ml 1290 ml OutputOutput Total 2000 ml 590 ml BalanceBalance -1100 ml 700 ml Constitutional: alert, well developed Psych: nl mood/affect Head: normocephalic Eyes: nl lids, nl sclera ENMT: nl external ears & nose Neck: non-tender Respiratory: clear to auscultation Cardiovascular: nl pulses, other (s1s2) Gastrointestinal: soft, non-tender Musculoskeletal: joint tenderness, range of motion Extremities: normal pulses Neurological: nl speech, other (alert/responsive) Skin: nl turgor Lymph: nontender Results Results 24hrs Laboratory Tests Test 03/28/19 17:10 03/29/19 05:21 Urine Color COLORLESS Urine Clarity CLEAR Urine pH 8.0 Urine Specific [place] 1.009 Urine Ketones NEGATIVE Urine Nitrite NEGATIVE Urine Bilirubin NEGATIVE Urine Urobilinogen NEGATIVE Urine Leukocyte Esterase NEGATIVE Urine Hemoglobin NEGATIVE Urine Glucose NEGATIVE Urine Total Protein NEGATIVE White Blood Count 6.5 Red Blood Count 2.56 L Hemoglobin 7.6 L Hematocrit 23.5 L Mean Corpuscular Volume 91.8 Mean Corpuscular Hemoglobin 29.7 Mean Corpuscular Hemoglobin Concent 32.3 Red Cell Distribution Width 13.8 Platelet Count 124 L Mean Platelet Volume 11.8 H Immature Granulocytes % 0.300 Neutrophils % 65.1 Lymphocytes % 21.2 Monocytes % 11.2 H Eosinophils % 2.0 Basophils % 0.2 Nucleated Red Blood Cells % 0.0 Immature Granulocytes # 0.020 Neutrophils # 4.3 Lymphocytes # 1.4 Monocytes # 0.7 Eosinophils # 0.1 Basophils # 0.0 Nucleated Red Blood Cells # 0.0 Sodium Level 139 Potassium Level 3.5 Chloride Level 104 Carbon Dioxide Level 32 H Anion Gap 3 L Blood Urea Nitrogen 7 Creatinine 0.47 Est Glomerular Filtrat Rate mL/min Glucose Level 122 Calcium Level 8.3 L Medications Medication Current Medications Dextrose/Lactated Ringer's 1,000 ml @ 100 mls/hr Q10H IV Last administered on 03/29/19 02:50; Admin Dose 125 MLS/HR; Start 03/26/19 at 16:00 Morphine Sulfate (morphine) 3 mg Q4H PRN IV SEVERE PAIN LEVEL 7-10 Last administered on 03/29/19 02:51; Admin Dose 3 MG; Start 03/26/19 at 16:00 Acetaminophen/ Hydrocodone Bitart ([place] (5/325)) 1 tab Q4H PRN PO MODERATE PAIN LEVEL 4-6 Last administered on 03/29/19 08:32; Admin Dose 1 TAB; Start 03/26/19 at 16:00 Ondansetron HCl (Zofran Inj) 4 mg Q6H PRN IV NAUSEA AND/OR VOMITING; Start 03/26/19 at 16:00 Atorvastatin Calcium (Lipitor) 20 mg QHS PO Last administered on 03/28/19 20:16; Admin Dose 20 MG; Start 03/26/19 at 21:00 Pantoprazole (Protonix Tab) 40 mg DAILY@0600 PO Last administered on 03/29/19 05:32; Admin Dose 40 MG; Start 03/27/19 at 06:00 ANNE SIMMONS March 29, 2019 12:00
[2019-03-29] MEDS ORDERED: BISACODYL (EC) 5 MG TAB PO ONE (13:30)
[2019-03-29] MEDS: POLYETHYLENE GLYCOL 17 GM PACKET PO PRN (14:10)
--- NOTE | 2019-03-29 16:46 | CONS ---
Assessment/Plan Assessment/Plan Assessment/Plan (Daily) seen and examined doing better bp stable moves all ambulates better dc planning to snf per daughter, pt has no support at home at this time fu instructions given to pt Consultation Date/Type/Reason Admit Date/Time March 26, 2019 at 09:29 Initial Consult Date Date/Time of Note DATE: 03/29/19 TIME: 16:45 Exam/Review of Systems Exam Vitals Vital Signs Date Temp Pulse Resp B/P (MAP) Pulse Ox O2 O2 Flow FiO2 Time Delivery Rate 03/29/19 88 16:12 03/29/19 98.8 18 96/54 (68) 100 Room Air 15:15 03/29/19 2.0 01:37 Intake and Output 03/28/19 03/28/19 03/29/19 1515:00 23:00 07:00 IntakeIntake Total 900 ml 1290 ml OutputOutput Total 2000 ml 590 ml BalanceBalance -1100 ml 700 ml Results Result Diagram: 03/29/19 0521 03/29/19 0521 Results 24hrs Laboratory Tests Test 03/28/19 17:10 03/29/19 05:21 Urine Color COLORLESS Urine Clarity CLEAR Urine pH 8.0 Urine Specific [place] 1.009 Urine Ketones NEGATIVE Urine Nitrite NEGATIVE Urine Bilirubin NEGATIVE Urine Urobilinogen NEGATIVE Urine Leukocyte Esterase NEGATIVE Urine Hemoglobin NEGATIVE Urine Glucose NEGATIVE Urine Total Protein NEGATIVE White Blood Count 6.5 Red Blood Count 2.56 L Hemoglobin 7.6 L Hematocrit 23.5 L Mean Corpuscular Volume 91.8 Mean Corpuscular Hemoglobin 29.7 Mean Corpuscular Hemoglobin Concent 32.3 Red Cell Distribution Width 13.8 Platelet Count 124 L Mean Platelet Volume 11.8 H Immature Granulocytes % 0.300 Neutrophils % 65.1 Lymphocytes % 21.2 Monocytes % 11.2 H Eosinophils % 2.0 Basophils % 0.2 Nucleated Red Blood Cells % 0.0 Immature Granulocytes # 0.020 Neutrophils # 4.3 Lymphocytes # 1.4 Monocytes # 0.7 Eosinophils # 0.1 Basophils # 0.0 Nucleated Red Blood Cells # 0.0 Sodium Level 139 Potassium Level 3.5 Chloride Level 104 Carbon Dioxide Level 32 H Anion Gap 3 L Blood Urea Nitrogen 7 Creatinine 0.47 Est Glomerular Filtrat Rate mL/min Glucose Level 122 Calcium Level 8.3 L Medications Medication Current Medications Morphine Sulfate (morphine) 3 mg Q4H PRN IV SEVERE PAIN LEVEL 7-10 Last administered on 03/29/19at 02:51; Admin Dose 3 MG; Start 03/26/19 at 16:00 Acetaminophen/ Hydrocodone Bitart ([place] (5/325)) 1 tab Q4H PRN PO MODERATE PAIN LEVEL 4-6 Last administered on 03/29/19at 12:44; Admin Dose 1 TAB; Start 03/26/19 at 16:00 Ondansetron HCl (Zofran Inj) 4 mg Q6H PRN IV NAUSEA AND/OR VOMITING; Start 03/26/19 at 16:00 Atorvastatin Calcium (Lipitor) 20 mg QHS PO Last administered on 03/28/19at 20:16; Admin Dose 20 MG; Start 03/26/19 at 21:00 Pantoprazole (Protonix Tab) 40 mg DAILY@0600 PO Last administered on 03/29/19at 05:32; Admin Dose 40 MG; Start 03/27/19 at 06:00 Senna (Senokot) 2 tab BID PO ; Start 03/29/19 at 21:00 Polyethylene Glycol (Miralax) 17 gm DAILY PRN PO CONSTIPATION Last administered on 03/29/19at 14:10; Admin Dose 17 GM; Start 03/29/19 at 13:30 NEMESIO HOWARD PA-C March 29, 2019 16:46
[2019-03-29] MEDS: SENNA TAB PO SCH (20:21)
[2019-03-29] MEDS: ATORVASTATIN 20 MG TAB PO SCH (20:21)
[2019-03-30] VITALS (10 sets, daily range): BP systolic 102–129; BP diastolic 56–67; PULSE 75–98; RESP 17–18
[2019-03-30] MEDS: HYDROCODONE/APAP (5/325) TAB PO PRN ×4 (03:23→22:10)
[2019-03-30] MEDS: morphine 4 MG/ML VIAL IV PRN (03:28)
[2019-03-30] MEDS: DEXTROSE 5%-LR 1,000 ML IV SCH ×2 (05:20→20:37)
[2019-03-30] MEDS: PANTOPRAZOLE (EC) 40 MG TAB PO SCH (05:20)
[2019-03-30] MEDS: SENNA TAB PO SCH ×2 (08:40→20:37)
--- NOTE | 2019-03-30 10:50 | PN ---
Date/Time of Note Date/Time of Note DATE: 03/30/19 TIME: 10:49 Assessment/Plan VTE Prophylaxis Risk score (from Ns)>0 risk: 12 SCD applied (from Ns): Yes Pharmacological prophylaxis: LMWH Lines/Catheters IV Catheter Type (from Nrsg): Peripheral IV Urinary Cath still in place: Yes Reason Cath still needed: skin wounds contaminated by urine Assessment/Plan Hospital Course -L4-L5 grade 1 severe spondylolisthesis with severe canal stenosis - status post L3-L5 laminectomy with posterolateral fusion by Dr. Mukherjee on 03/26/19. - Continue IV fluids and postoperative antibiotic. - Continue [place] and morphine as needed for pain and Zofran as needed for nausea. PT OT. - Anemia - Hgb 7.6 - transfuse PRN - monitor CBC -Hyperlipidemia, continue Lipitor. -GERD, continue Protonix. Result Diagram: 03/29/1952003/29/19520 Subjective 24 Hr Interval Summary Free Text/Dictation Patient still complain of back pain Exam/Review of Systems Exam Vitals Vital Signs Date Temp Pulse Resp B/P (MAP) Pulse Ox O2 O2 Flow FiO2 Time Delivery Rate 03/30/19 97 08:01 03/30/19 98.5 18 102/59 96 Room Air 07:29 (73) 03/29/19 2.0 01:37 Intake and Output 03/29/19 03/29/19 03/30/19 1515:00 23:00 07:00 IntakeIntake Total 700 ml 1825 ml 1275 ml OutputOutput Total 1780 ml 3400 ml BalanceBalance 700 ml 45 ml -2125 ml Constitutional: well developed Head: normocephalic, atraumatic Neck: supple Respiratory: diminished breath sounds Cardiovascular: regular rate and rhythm Gastrointestinal: soft, non-tender Extremities: normal pulses Medications Medication Current Medications Morphine Sulfate (morphine) 3 mg Q4H PRN IV SEVERE PAIN LEVEL 7-10 Last administered on 03/30/19at 03:28; Admin Dose 3 MG; Start 03/26/19 at 16:00 Acetaminophen/ Hydrocodone Bitart ([place] (5/325)) 1 tab Q4H PRN PO MODERATE PAIN LEVEL 4-6 Last administered on 03/30/19at 08:40; Admin Dose 1 TAB; Start 03/26/19 at 16:00 Ondansetron HCl (Zofran Inj) 4 mg Q6H PRN IV NAUSEA AND/OR VOMITING; Start 03/26/19 at 16:00 Atorvastatin Calcium (Lipitor) 20 mg QHS PO Last administered on 03/29/19at 20:21; Admin Dose 20 MG; Start 03/26/19 at 21:00 Pantoprazole (Protonix Tab) 40 mg DAILY@0600 PO Last administered on 03/30/19 05:20; Admin Dose 40 MG; Start 03/27/19 at 06:00 Senna (Senokot) 2 tab BID PO Last administered on 03/30/19at 08:40; Admin Dose 2 TAB; Start 03/29/19 at 21:00 Polyethylene Glycol (Miralax) 17 gm DAILY PRN PO CONSTIPATION Last administered on 03/29/19at 14:10; Admin Dose 17 GM; Start 03/29/19 at 13:30 Dextrose/Lactated Ringer's 1,000 ml @ 75 mls/hr [id number] IV Last administered on 03/30/19at 05:20; Admin Dose 75 MLS/HR; Start 03/29/19 at 17:00 KATI YOUNG March 30, 2019 10:50
[2019-03-30] MEDS: POLYETHYLENE GLYCOL 17 GM PACKET PO PRN (12:50)
[2019-03-30] MEDS ORDERED: LACTULOSE 30ML CUP GTB ONE (18:30)
[2019-03-30] MEDS: ATORVASTATIN 20 MG TAB PO SCH (20:37)
[2019-03-31] VITALS (13 sets, daily range): BP systolic 105–121; BP diastolic 57–86; PULSE 76–88; RESP 17–20
[2019-03-31] MEDS: PANTOPRAZOLE (EC) 40 MG TAB PO SCH (06:23)
[2019-03-31] MEDS: HYDROCODONE/APAP (5/325) TAB PO PRN ×3 (07:45→20:00)
[2019-03-31] MEDS: SENNA TAB PO SCH ×2 (09:00→20:00)
[2019-03-31] MEDS: DEXTROSE 5%-LR 1,000 ML IV SCH (09:01)
--- NOTE | 2019-03-31 11:34 | PN ---
Date/Time of Note Date/Time of Note DATE: 03/31/19 TIME: 11:34 Assessment/Plan VTE Prophylaxis Risk score (from Ns)>0 risk: 9 SCD applied (from Ns): Yes Pharmacological prophylaxis: LMWH Lines/Catheters IV Catheter Type (from Nrsg): Peripheral IV Urinary Cath still in place: Yes Reason Cath still needed: skin wounds contaminated by urine Assessment/Plan Hospital Course -L4-L5 grade 1 severe spondylolisthesis with severe canal stenosis - status post L3-L5 laminectomy with posterolateral fusion by Dr. Mukherjee on 03/26/19. - Continue IV fluids and postoperative antibiotic. - Continue [place] and morphine as needed for pain and Zofran as needed for nausea. PT OT. - Anemia - Hgb 7.6 - transfuse PRN - monitor CBC -Hyperlipidemia, continue Lipitor. -GERD, continue Protonix. Result Diagram: 03/29/1952003/29/19520 Subjective 24 Hr Interval Summary Free Text/Dictation Patient still has some back pain Exam/Review of Systems Exam Vitals Vital Signs Date Temp Pulse Resp B/P (MAP) Pulse Ox O2 O2 Flow FiO2 Time Delivery Rate 03/31/19 98.2 86 18 113/60 98 Room Air 11:00 (77) 03/29/19 2.0 01:37 Intake and Output 03/30/19 03/30/19 03/31/19 1515:00 23:00 07:00 IntakeIntake Total 800 ml 1250 ml OutputOutput Total 1500 ml 2750 ml BalanceBalance -700 ml -1500 ml Constitutional: well developed Head: normocephalic, atraumatic Neck: supple Respiratory: diminished breath sounds Cardiovascular: regular rate and rhythm Gastrointestinal: soft, non-tender Extremities: normal pulses Medications Medication Current Medications Morphine Sulfate (morphine) 3 mg Q4H PRN IV SEVERE PAIN LEVEL 7-10 Last administered on 03/30/19at 03:28; Admin Dose 3 MG; Start 03/26/19 at 16:00 Acetaminophen/ Hydrocodone Bitart ([place] (5/325)) 1 tab Q4H PRN PO MODERATE PAIN LEVEL 4-6 Last administered on 03/31/19at 07:45; Admin Dose 1 TAB; Start 03/26/19 at 16:00 Ondansetron HCl (Zofran Inj) 4 mg Q6H PRN IV NAUSEA AND/OR VOMITING; Start 03/26/19 at 16:00 Atorvastatin Calcium (Lipitor) 20 mg QHS PO Last administered on 03/30/19 20:37; Admin Dose 20 MG; Start 03/26/19 at 21:00 Pantoprazole (Protonix Tab) 40 mg DAILY@0600 PO Last administered on 03/31/19 06:23; Admin Dose 40 MG; Start 03/27/19 at 06:00 Senna (Senokot) 2 tab BID PO Last administered on 03/30/19 20:37; Admin Dose 2 TAB; Start 03/29/19 at 21:00 Polyethylene Glycol (Miralax) 17 gm DAILY PRN PO CONSTIPATION Last administered on 03/30/19 12:50; Admin Dose 17 GM; Start 03/29/19 at 13:30 Dextrose/Lactated Ringer's 1,000 ml @ 75 mls/hr [id number] IV Last administered on 03/31/19 09:01; Admin Dose 75 MLS/HR; Start 03/29/19 at 17:00 KATI YOUNG March 31, 2019 11:34
[2019-03-31] MEDS: ATORVASTATIN 20 MG TAB PO SCH (20:00)
[2019-04-01] VITALS (10 sets, daily range): BP systolic 102–109; BP diastolic 57–63; PULSE 69–93; RESP 17–18
[2019-04-01] MEDS: PANTOPRAZOLE (EC) 40 MG TAB PO SCH (06:10)
[2019-04-01] MEDS: DEXTROSE 5%-LR 1,000 ML IV SCH (06:10)
[2019-04-01] MEDS: HYDROCODONE/APAP (5/325) TAB PO PRN ×3 (06:10→18:45)
[2019-04-01] MEDS: SENNA TAB PO SCH (09:36)
[2019-04-01] MEDS ORDERED: SENN-120 PO (16:37)
[2019-04-01] MEDS ORDERED: HYDR-3601 PO (16:37)
--- NOTE | 2019-04-01 16:39 | PN ---
Date/Time of Note Date/Time of Note DATE: 04/01/19 TIME: 16:38 Assessment/Plan VTE Prophylaxis Risk score (from Ns)>0 risk: 9 SCD applied (from Ns): Yes Pharmacological prophylaxis: NA/contraindicated Pharm contraindication: surgical contra Lines/Catheters IV Catheter Type (from Nrsg): Peripheral IV Urinary Cath still in place: No Assessment/Plan Hospital Course DC IV fluids, DC [place] monitor if patient is able to void, DC planning Assessment/Plan -L4-L5 grade 1 severe spondylolisthesis with severe canal stenosis status post L3-L5 laminectomy with posterolateral fusion by Dr. Mukherjee on 03/26/19. Continue IV fluids and postoperative antibiotic. Continue [place] and morphine as needed for pain and Zofran as needed for nausea. PT OT. -Hyperlipidemia, continue Lipitor. -GERD, continue Protonix. Further recommendations based on clinical course. Plan of care discussed with Dr. Suarez. Result Diagram: 04/01/19 0950 04/01/19 0950 Results 24hrs Laboratory Tests Test 04/01/19 09:50 White Blood Count 4.6 #L Red Blood Count 2.77 L Hemoglobin 8.3 L Hematocrit 25.9 L Mean Corpuscular Volume 93.5 Mean Corpuscular Hemoglobin 30.0 Mean Corpuscular Hemoglobin Concent 32.0 Red Cell Distribution Width 13.2 Platelet Count 231 # Mean Platelet Volume 10.9 H Immature Granulocytes % 0.200 Neutrophils % 61.0 Lymphocytes % 21.7 Monocytes % 14.3 H Eosinophils % 2.6 Basophils % 0.2 Nucleated Red Blood Cells % 0.0 Immature Granulocytes # 0.010 Neutrophils # 2.8 Lymphocytes # 1.0 Monocytes # 0.7 Eosinophils # 0.1 Basophils # 0.0 Nucleated Red Blood Cells # 0.0 Sodium Level 138 Potassium Level 3.7 Chloride Level 101 Carbon Dioxide Level 31 Anion Gap 6 Blood Urea Nitrogen 10 Creatinine 0.54 Est Glomerular Filtrat Rate mL/min Glucose Level 115 Calcium Level 8.7 Exam/Review of Systems Exam Vitals Vital Signs Date Temp Pulse Resp B/P (MAP) Pulse Ox O2 O2 Flow FiO2 Time Delivery Rate 04/01/19 74 16:01 04/01/19 98.9 17 102/57 100 11:19 (72) 03/31/19 Room Air 15:00 03/29/19 2.0 01:37 Intake and Output 03/31/19 03/31/19 04/01/19 1515:00 23:00 07:00 IntakeIntake Total 1260 ml OutputOutput Total 2100 ml BalanceBalance -840 ml Exam Constitutional: alert, oriented Respiratory: clear to auscultation Cardiovascular: regular rate and rhythm Gastrointestinal: soft, non-tender Musculoskeletal: other (s/p lumbar surgery) Extremities: normal pulses Neurological: nl mental status Results Results 24hrs Laboratory Tests Test 04/01/19 09:50 White Blood Count 4.6 #L Red Blood Count 2.77 L Hemoglobin 8.3 L Hematocrit 25.9 L Mean Corpuscular Volume 93.5 Mean Corpuscular Hemoglobin 30.0 Mean Corpuscular Hemoglobin Concent 32.0 Red Cell Distribution Width 13.2 Platelet Count 231 # Mean Platelet Volume 10.9 H Immature Granulocytes % 0.200 Neutrophils % 61.0 Lymphocytes % 21.7 Monocytes % 14.3 H Eosinophils % 2.6 Basophils % 0.2 Nucleated Red Blood Cells % 0.0 Immature Granulocytes # 0.010 Neutrophils # 2.8 Lymphocytes # 1.0 Monocytes # 0.7 Eosinophils # 0.1 Basophils # 0.0 Nucleated Red Blood Cells # 0.0 Sodium Level 138 Potassium Level 3.7 Chloride Level 101 Carbon Dioxide Level 31 Anion Gap 6 Blood Urea Nitrogen 10 Creatinine 0.54 Est Glomerular Filtrat Rate mL/min Glucose Level 115 Calcium Level 8.7 Medications Medication Current Medications Morphine Sulfate (morphine) 3 mg Q4H PRN IV SEVERE PAIN LEVEL 7-10 Last adminis tered on 03/30/19at 03:28; Admin Dose 3 MG; Start 03/26/19 at 16:00 Acetaminophen/ Hydrocodone Bitart ([place] (5/325)) 1 tab Q4H PRN PO MODERATE PAIN LEVEL 4-6 Last administered on 04/01/19at 14:23; Admin Dose 1 TAB; Start 03/26/19 at 16:00 Ondansetron HCl (Zofran Inj) 4 mg Q6H PRN IV NAUSEA AND/OR VOMITING; Start 03/26/19 at 16:00 Atorvastatin Calcium (Lipitor) 20 mg QHS PO Last administered on 03/31/19at 20:00; Admin Dose 20 MG; Start 03/26/19 at 21:00 Pantoprazole (Protonix Tab) 40 mg DAILY@0600 PO Last administered on 04/01/19at 06:10; Admin Dose 40 MG; Start 03/27/19 at 06:00 Senna (Senokot) 2 tab BID PO Last administered on 04/01/19at 09:36; Admin Dose 2 TAB; Start 03/29/19 at 21:00 Polyethylene Glycol (Miralax) 17 gm DAILY PRN PO CONSTIPATION Last administered on 03/30/19at 12:50; Admin Dose 17 GM; Start 03/29/19 at 13:30 ZAKI STARK April 01, 2019 16:39
== END 2019-04-01 20:45 | disposition home health service (06) | DRG 460 ==
LOC: REC 03-26 09:29 → ICU 03-26 19:51 → 6WM 03-28 07:07
PROVIDERS: ADMIT Neurological Surgery; ATTEND Neurological Surgery
PROC: 0SG1071 Fusion of 2 or more Lumbar Vertebral Joints with Autologous Tissue Substitute, Posterior Approach, Posterior Column, Open Approach (ICD-10-PCS; principal; 2019-03-26 12:30)
PROC: 30233N1 Transfusion of Nonautologous Red Blood Cells into Peripheral Vein, Percutaneous Approach (ICD-10-PCS; 2019-03-28)
DX: M43.16 Spondylolisthesis, lumbar region (principal); M47.816 Spondylosis without myelopathy or radiculopathy, lumbar region; M48.061 Spinal stenosis, lumbar region without neurogenic claudication; E78.5 Hyperlipidemia, unspecified; K21.9 Gastro-esophageal reflux disease without esophagitis; D64.9 Anemia, unspecified; I95.89 Other hypotension
CPT/HCPCS: 36430; 71046; 72100; 80048; 80053; 81001; 81003; 85025; 85610; 85730; 86078; 86850; 86900; 86901; 86920; 87081; 87086; 93005; 97110; 97116; 97161; 97530; C1713; J0690; J1100; J1170; J2175; J2270; J2405; J2710; J2765; J3010; J7120; J7121; P9016